=== PATIENT | female | born 1965 | race African-American/Black ===

== ENCOUNTER 2017-10-03 11:45 | Emergency (ER) | payer BC ==
[~2017-10-03] VITALS: Ht 162.6 cm; Wt 78.2 kg
[2017-10-03 13:55] LABS: HEMATOCRIT 41.4 % (36.0-46.0); HEMOGLOBIN 13.3 G/DL (11.9-15.5); MCH 26.2 PG (29.0-34.0); MCHC 32.1 G/DL (30.0-36.0); MCV 81.7 FL (83-99); PLATELET COUNT 269 K/uL (156-360); RBC DIS.WIDTH-CV 15.7 % (11.8-14.6); RBC DIS.WIDTH-SD 46.6 % (39-53); RED BLOOD COUNT 5.07 M/uL (3.80-5.20); WHITE BLOOD COUNT 6.9 K/uL (4.1-10.2)
[2017-10-03 14:04] LABS: ALBUMIN 4.3 g/dL (3.2-4.8); CHLORIDE 104 mEq/L (99-109); SODIUM 140 mEq/L (136-147)
[2017-10-03 14:06] LABS: GLUCOSE 76 mg/dL (70-99); TOTAL PROTEIN 7.9 g/dL (6.4-8.3)
[2017-10-03 14:08] LABS: TOTAL BILIRUBIN 0.3 mg/dL (0.0-1.0)
[2017-10-03 14:10] LABS: ALKALINE PHOSPHATASE 66 IU/L (3-129); CREATININE 0.8 mg/dL (0.6-1.3); GFR ESTIMATE (CALCULATED) > 59 mL/min/
[2017-10-03 14:11] LABS: UREA NITROGEN (BUN) 10 mg/dL (9-23)
[2017-10-03 14:12] LABS: AST (GOT) 28 IU/L (2-34)
[2017-10-03 14:13] LABS: ALT (GPT) 25 IU/L (3-49)
[2017-10-03 14:59] VITALS: BP 137/64
== END 2017-10-03 15:00 | disposition home or self-care (01) ==
LOC: EME 11:45
PROVIDERS: Nurse Practitioner Family
DX: G58.9 Mononeuropathy, unspecified (principal); Z86.69 Personal history of other diseases of the nervous system and sense organs
CPT/HCPCS: 70450; 80053; 85027; 99281; 99284; J1100; J1885